=== PATIENT | female | born 1945 | race Caucasian/White ===

== ENCOUNTER → 2016-10-14 | Outpatient (CLI) | payer OTHER ==
[~2016-10-14] MED LIST: ASPIRIN PO; COLCRYS0.6 MG PO; HUMALOG100 U/ML; LANTUS100 U/ML SQ; LEVOXYL0.125 MG PO; MAGNESIUM; MAXZIDE 50 MG-71 TAB PO; MOTRIN 200200 MG/TAB PO; POTASSIUM; TYLENOL EXTRA500 M1 PO; ZYLOPRIM 100MG100 MG PO; [UNRECOGNIZED DRUG - OTHER] SQ
== END ==
LOC: MC.RAD 09-25 10:00
DX: Z12.31 Encounter for screening mammogram for malignant neoplasm of breast (principal); Z85.3 Personal history of malignant neoplasm of breast; Z80.3 Family history of malignant neoplasm of breast

== ENCOUNTER 2017-02-17 14:00 | Outpatient (RCR) | payer OTHER | END 2017-03-24 10:41 | LOC: WSPT 14:00 | DX: M54.2 Cervicalgia (principal); M54.9 Dorsalgia, unspecified ==

== ENCOUNTER → 2017-11-06 | Outpatient (CLI) | payer MEDICARE, BC | LOC: MC.RAD 08:40 | DX: Z12.31 Encounter for screening mammogram for malignant neoplasm of breast (principal) ==

== ENCOUNTER → 2018-11-15 | Outpatient (CLI) | payer MEDICARE, BC | LOC: MC.RAD 14:30 | DX: Z12.31 Encounter for screening mammogram for malignant neoplasm of breast (principal) ==

== ENCOUNTER → 2019-12-30 | Outpatient (CLI) | payer MEDICARE, BC | LOC: MC.RAD 13:28 | DX: Z12.31 Encounter for screening mammogram for malignant neoplasm of breast (principal) ==

== ENCOUNTER → 2021-01-01 | Outpatient (CLI) | payer MEDICARE, BC | LOC: MC.RAD 11:00 | DX: Z12.31 Encounter for screening mammogram for malignant neoplasm of breast (principal); R92.1 Mammographic calcification found on diagnostic imaging of breast ==

== ENCOUNTER → 2021-01-03 | Outpatient (CLI) | payer MEDICARE, BC | LOC: MC.RAD 07:00 | DX: R92.0 Mammographic microcalcification found on diagnostic imaging of breast (principal); R92.1 Mammographic calcification found on diagnostic imaging of breast ==

== ENCOUNTER → 2022-01-07 | Outpatient (CLI) | payer MEDICARE, BC | LOC: MC.RAD 14:13 | DX: Z12.31 Encounter for screening mammogram for malignant neoplasm of breast (principal) ==

== ENCOUNTER 2023-08-11 15:45 | Outpatient (RCR) | payer MEDICARE, BC | END 2023-08-12 | disposition home or self-care (01) | LOC: WSPT | DX: M48.061 Spinal stenosis, lumbar region without neurogenic claudication (principal); M54.12 Radiculopathy, cervical region; M25.511 Pain in right shoulder; M25.512 Pain in left shoulder; G89.29 Other chronic pain ==

== ENCOUNTER → 2023-09-10 | Outpatient (RCR) | payer MEDICARE, BC | END | disposition home or self-care (01) | LOC: WSPT → WSC 08-20 15:00 → WSPT 08-27 15:00 → WSC 09-03 15:00 → WSPT 09-08 15:00 | DX: M54.12 Radiculopathy, cervical region (principal); M48.061 Spinal stenosis, lumbar region without neurogenic claudication; M25.511 Pain in right shoulder; M25.512 Pain in left shoulder; G89.29 Other chronic pain ==

== ENCOUNTER 2023-10-08 15:00 | Outpatient (RCR) | payer MEDICARE, BC | END 2023-10-11 | disposition home or self-care (01) | LOC: WSC | DX: M54.12 Radiculopathy, cervical region (principal); M48.061 Spinal stenosis, lumbar region without neurogenic claudication; M25.512 Pain in left shoulder; M25.511 Pain in right shoulder; G89.29 Other chronic pain ==